=== PATIENT | male | born 1975 | race African-American/Black ===

== ENCOUNTER 2019-04-15 17:36 | Emergency (ER) | payer OTHER ==
[~2019-04-15] VITALS: Ht 185.4 cm; Wt 136.1 kg
--- NOTE | 2019-04-15 18:15 | Diagnostic Imaging Report ---
EXAMINATION: Left shoulder series. CLINICAL HISTORY: Left arm pain. COMPARISON: None. . Discussion: The osseous structures are intact without evidence of acute, displaced fracture or dislocation. No osteolytic or osteoblastic lesions. There is no evidence of a.c. separation. The glenohumeral joint is within normal limits. The soft tissues are normal. IMPRESSION: 1. No acute abnormalities. Signed by: Dr. Al Mathews M.D. on 04/15/2019 6:12 PM
[2019-04-15] MEDS ORDERED: IBUPROFEN 200 MG TAB ONE (18:30)
== END 2019-04-15 18:57 | disposition home or self-care (01) ==
LOC: FSED 17:36
DX: S43.422A Sprain of left rotator cuff capsule, initial encounter (principal); X50.0XXA Overexertion from strenuous movement or load, initial encounter; Y92.009 Unspecified place in unspecified non-institutional (private) residence as the place of occurrence of the external cause; I10 Essential (primary) hypertension
CPT/HCPCS: 93005; 99283